=== PATIENT | male | born 1990 | race African-American/Black ===

== ENCOUNTER → 2018-12-12 07:51 | Outpatient (CLI) | payer OTHER, SELFPAY ==
--- NOTE | 2018-12-12 | DI.MRI.S_ITS ---
PROCEDURE: MR WRIST LT WO CON INDICATIONS: Left wrist pain with suspected Keinbock's disease or ulnar impaction syndrome. TECHNIQUE: Noncontrast coronal proton density fast spin echo and T2 fast spin echo with fat saturation; coronal 3-D gradient echo, axial T1 spin echo and T2 fast spin echo with fat saturation, sagittal T1 spin echo through the wrist. COMPARISON: None. FINDINGS: Image quality: Excellent. Bones and cartilage: There is fusion of the lunate and triquetrum, consistent with osseous lunotriquetral coalition. No bone marrow contusions or fractures. No sclerosis to suggest avascular necrosis. No abnormal proximal bone marrow edema or cystic changes to suggest ulnar impaction syndrome. No evidence for avascular necrosis. Overlying cartilage surfaces appear normal. Carpal ligaments: The scapholunate and lunotriquetral ligaments appear intact. In the absence of intra-articular contrast, the extrinsic carpal ligaments are not well identified. On sagittal images, the pisohamate ligament appears intact. Triangular fibrocartilage complex: The triangular fibrocartilage appears intact. The adjacent meniscal homolog appears normal in the absence of intra-articular contrast. The extensor carpi ulnaris tendon is normal in location and morphology. Tendons and soft tissues: The carpal tunnel structures appear normal, including the median nerve. The ulnar nerve appears normal within Guyon's canal. All six extensor tendon compartments demonstrate normal morphology, without pathologic tendon sheath fluid. No soft tissue ganglion cysts. IMPRESSION: 1. Osseous lunotriquetral coalition demonstrated. No evidence of avascular necrosis or ulnar impaction syndrome. 2. Scapholunate ligament and triangular fibrocartilage appear intact. Dictated by: James Hagan M.D. on 12/12/2018 at 10:35 Approved by: James Hagan M.D. on 12/12/2018 at 10:46
== END ==
PROVIDERS: Visit Provider Family Medicine
DX: M25.532 Pain in left wrist (principal)
CPT/HCPCS: 73221